=== PATIENT | male | born 1950 ===

== ENCOUNTER 2018-07-14 07:00 | Inpatient (IN) | payer OTHER ==
[~2018-07-14] VITALS: Ht 165.1 cm; Wt 73.0 kg
[2018-07-14] MEDS ORDERED: METFORMIN HCL500 M1 ORAL (10:57)
[2018-07-14] MEDS ORDERED: DONEPEZIL HCL10 MG ORAL (10:57)
[2018-07-14] MEDS ORDERED: GLIPIZIDE10 MG PO (10:57)
[2018-07-14] MEDS ORDERED: PRAVACHOL40 MG ORAL (10:57)
[2018-07-14] MEDS ORDERED: METFORMIN HCL1000 M1 ORAL (10:57)
[2018-07-14] MEDS ORDERED: PLAVIX75 MG ORAL (10:57)
[2018-07-14] MEDS ORDERED: TRAZODONE HCL50 MG ORAL (10:57)
[2018-07-14] MEDS ORDERED: PROTONIX40 MG ORAL (10:57)
[2018-07-14] MEDS ORDERED: POTASSIUM CHLORIDE PO (10:57)
[2018-07-14] MEDS ORDERED: MULTIVITAMINS1 EAC2 ORAL (10:57)
[2018-07-14] MEDS ORDERED: METOPROLOL TART25 MG ORAL (10:57)
[2018-07-14] MEDS ORDERED: NORVASC10 MG ORAL (10:57)
[2018-07-14] MEDS ORDERED: VITAMIN D22000 UNIT PO (10:57)
[2018-07-14] MEDS ORDERED: LOSARTAN POTAS100 MG ORAL (10:57)
[2018-07-15] VITALS (10 sets, daily range): BP systolic 119–146; BP diastolic 60–73
[2018-07-15] MEDS ORDERED: Zemuron 50mg/5ml Inj IV ONE (06:41)
[2018-07-15] MEDS ORDERED: LR 1000ml 1,000 ML IVLG SCH (06:53)
--- NOTE | 2018-07-15 06:56 | Anethesia Preoperative Eval ---
Anesthesia Pre-op PMH/ROS General Date of Evaluation: July 15, 2018 Time of Evaluation: 07:01 Anesthesiologist: Joon ASA Score: ASA 3 Mallampati Score Class I : Soft palate, uvula, fauces, pillars visible Class II: Soft palate, uvula, fauces visible Class III: Soft palate, base of uvula visible Class IV: Only hard plate visible Mallampati Classification: Class II Surgeon: Sherry Diagnosis: Neck Pain Surgical Procedure: ACDF C4-5, C5-6, C6-7 Anesthesia History: none Family History: no anesthesia problems Allergies: Coded Allergies: No Known Allergies (Unverified , 07/13/18) Medications: see eMAR Patient NPO?: Yes NPO Date: Jul 14, 2018 NPO Time: 2358 Past Medical History Cardiovascular: Reports: HTN, other - HL Pulmonary: Reports: HEATHER Gastrointestinal/Genitourinary: Reports: GERD Neurologic/Psychiatric: Reports: depression/anxiety Endocrine: Reports: DM PSxH Narrative: Sleep Apnea SX, Renal Stones Removed Anesthesia Pre-op Phys. Exam Physician Exam Last Vital Signs Date Time Temp Pulse Resp B/P (MAP) Pulse Ox O2 Delivery O2 Flow Rate FiO2 07/15/18 06:26 97.4 66 20 136/65 (88) 97 07/15/18 05:53 Room Air Constitutional: NAD Neurologic: CN 2-12 intact Cardiovascular: RRR Respiratory: CTA Gastrointestinal: S/NT/ND Airway Exam Mallampati Score: Class II MO: full ROM: limited Teeth: missing, intact Dentures: upper, lower Anesthesia Pre-op A/P Risk Assessment & Plan Assessment: ASA 3 Plan: GA, SED, GlideScope Go Status Change Before Surgery: No Pre-Antibiotics Dru Grams Ancef IV Given Within 1 Hr of Incision: Yes Time Given: 07:21 Benjamin Dupree MD July 15, 2018 06:56
[2018-07-15] MEDS ORDERED: Sodium Chloride 10ml vial INJ ONE (06:59)
[2018-07-15] MEDS ORDERED: Lidocaine 1% MPF 10mg/ml 5ml ONE (06:59)
[2018-07-15] MEDS ORDERED: Ketorolac 30mg Inj IV PRN ×2 (07:00)
[2018-07-15] MEDS ORDERED: fentaNYL 100 mcg/2 mL IV PRN (07:00)
[2018-07-15] MEDS ORDERED: DiphenhydrAMINE 50mg/ml Inj IVP PRN (07:00)
[2018-07-15] MEDS ORDERED: HYDROcodone/Acetamin 5/325 tab ORAL PRN ×2 (07:00→07:15)
[2018-07-15] MEDS ORDERED: Atropine Sulfate 0.4mg/ml inj IVP PRN (07:00)
[2018-07-15] MEDS ORDERED: Hydromorphone 0.5mg/0.5ml inj IVP PRN (07:00)
[2018-07-15] MEDS ORDERED: Acetaminophen (Non formulary) 100 ML IV ONE (07:00)
[2018-07-15] MEDS ORDERED: oxyCODONE HCL/Acetaminophen 5/325mg ORAL PRN (07:00)
[2018-07-15] MEDS ORDERED: Midazolam 2mg/2ml Inj IVP PRN (07:00)
[2018-07-15] MEDS ORDERED: LORazepam Inj 2mg/ml 1ml IV PRN (07:00)
[2018-07-15] MEDS ORDERED: Sterile Water Irrig 1000ml IRRIG ONE (07:00)
[2018-07-15] MEDS ORDERED: Labetalol 5mg/ml 20ml vial IV PRN (07:00)
[2018-07-15] MEDS ORDERED: Propofol 1,000mg/ 100ml btl IV ONE (07:00)
[2018-07-15] MEDS ORDERED: NS Irrig 1000ml ONE (07:00)
[2018-07-15] MEDS ORDERED: Metoclopramide 10mg/2ml Inj IVP PRN ×2 (07:00→07:15)
[2018-07-15] MEDS ORDERED: LR 1000ml ONE (07:00)
[2018-07-15] MEDS ORDERED: Meperidine 50mg/ml Inj(FOR RIGORS ONLY) IVP PRN (07:00)
[2018-07-15] MEDS ORDERED: ceFAZolin sod 2 GM in D5W 110 ML IVPB ONE (07:00)
[2018-07-15] MEDS ORDERED: Neostigmine 1mg/ml 10ml Inj ONE (07:00)
[2018-07-15] MEDS ORDERED: HYDROcodone/Acetamin 7.5/325 tab ORAL PRN ×3 (07:00→07:15)
[2018-07-15] MEDS ORDERED: Vancomycin 1gm vial IVPB ONE (07:02)
[2018-07-15] MEDS ORDERED: Gelfoam Size TOPIC ONE (07:02)
[2018-07-15] MEDS ORDERED: Thrombin 5000 units TOPIC ONE ×2 (07:02→07:03)
[2018-07-15] MEDS ORDERED: Bacitracin 50000 Units Vial ONE (07:03)
[2018-07-15] MEDS ORDERED: fentaNYL 100 mcg/2 mL IV ONE (07:06)
[2018-07-15] MEDS ORDERED: Lidocaine 1% Plain 30 ml INJ ONE ×2 (07:11→09:23)
--- NOTE | 2018-07-15 07:13 | Pre-Procedure Note/Attestation ---
Pre-Procedure Note/Attestation Complete Prior to Procedure Planned Procedure: not applicable Procedure Narrative: Anterior cervical discectomy and fusion of Cervical 45,56,67 Indications for Procedure Pre-Operative Diagnosis: Herniation at C45,56,67 Attestation I attest that I discussed the nature of the procedure; its benefits; risks and complications; and alternatives (and the risks and benefits of such alternatives ), prior to the procedure, with the patient (or the patient's legal direct sales representative). I attest that, if there was a reasonable possibility of needing a blood transfusion, the patient (or the patient's legal direct sales representative) was given the [facility] standardized written summary, pursuant to the [place] Blood Safety Act ([place] Health and Safety Code # 1645, as amended). I attest that I re-evaluated the patient just prior to the surgery and that there has been no change in the patient's H&P, except as documented below: Tay Powell MD July 15, 2018 07:13
[2018-07-15] MEDS ORDERED: Morphine Sulfate 4mg/ml Inj (IV USE ONLY) IV PRN ×2 (07:15→12:19)
[2018-07-15] MEDS ORDERED: Chloraseptic Spray 20mL Bottle ORAL PRN (07:15)
[2018-07-15] MEDS ORDERED: HYDROmorphone 1mg/ml Carpuject IVP PRN (07:15)
[2018-07-15] MEDS ORDERED: Naloxone 0.4mg/ml Inj IVP PRN (07:15)
[2018-07-15] MEDS ORDERED: Morphine Sulfate 2mg/ml Inj(IV/IM USE ONLY) IV PRN (07:15)
--- NOTE | 2018-07-15 07:15 | Brief Operative Note ---
Immediate Post Operative Note Operative Note Chief Complaint: Neck pain and radiculopathy Pre-op Diagnosis: Herniation at C45,56,67 Procedure: Anterior cervical discectomy and fusion of Cervical 45,56,67 Post-op Diagnosis: same as pre-op Findings: consistent w/pre-op dx studies Surgeon: Sherry Tooler: Walt Anesthesiologist: Joon Anesthesia: general Specimen: none Complications: none Condition: stable Fluids: IVF Estimated Blood Loss: minimal Drains: none Implant(s) used?: Yes - Nuvasive interlock c sz 6x2 sz 5x1 screws 13mmx9 Tay Powell MD July 15, 2018 07:15
[2018-07-15] MEDS ORDERED: Glycopyrrolate 0.2mg/ml 1ml Vial ONE ×2 (08:38→10:02)
--- NOTE | 2018-07-15 09:16 | General Progress Note ---
Assessment/Plan Assessment/Plan: Neck pain and radiculopathy Herniation at C45,56,67 Anterior cervical discectomy and fusion of Cervical 45,56,67 PLAN 1. incentive spirometry 2. SCD 3. PT evaluation and therapy 4. Hydration 5. Pain management 6. discharge once stable with outpatient follow up Subjective Allergies: Coded Allergies: No Known Allergies (Unverified , 07/13/18) Subjective asked to follow up medically Objective Last 24 Hour Vital Signs Date Time Temp Pulse Resp B/P (MAP) Pulse Ox O2 Delivery O2 Flow Rate FiO2 07/15/18 06:26 97.4 66 20 136/65 (88) 97 07/15/18 05:53 Room Air Height (Feet): 5 Height (Inches): 5.00 Weight (Pounds): 161 Igor Nunez MD July 15, 2018 09:16
--- NOTE | 2018-07-15 09:34 | Immediate Post-Op Evaluation ---
Immediate Post-Op Evalulation Immediate Post-Op Evalulation Procedure: ACDF C4-5, C5-6, C6-7 Date of Evaluation: July 15, 2018 Time of Evaluation: 10:55 IV Fluids: 1000 LR Blood Products: 0 Estimated Blood Loss: 75 Urinary Output: 350 Blood Pressure Systolic: 126 Blood Pressure Diastolic: 68 Pulse Rate: 71 Respiratory Rate: 16 O2 Sat by Pulse Oximetry: 98 Temperature (Fahrenheit): 97.3 Pain Score (1-10): 2 Nausea: No Vomiting: No Complications 0 Patient Status: awake, reacts, patent, extubated, none Hydration Status: adequate Dru Grams Ancef IV Given Within 1 Hr of Incision: Yes Time Given: 07:21 Benjamin Dupree MD July 15, 2018 09:34
--- NOTE | 2018-07-15 11:28 | Diagnostic Imaging Report ---
INDICATION: Pain, intraoperative TECHNIQUE: Intraoperative imaging Fluoroscopy time: 6.5 seconds Total dose: 0.61561 mGym2 Total number of images: 4 COMPARISON: None FINDINGS: Intraoperative images demonstrate surgical tool's projected over C4 and C5. Subsequent images demonstrate surgical tool projected anterior to C4-5 and C5-6 discs. Subsequent images demonstrate placement of anterior fusion hardware at C4-5, C5-6, C6-7 IMPRESSION: Intraoperative images, as described
[2018-07-15] MEDS ORDERED: Milk of Magnesia 30ml Ud ORAL PRN (12:18)
[2018-07-15] MEDS: Artificial Tears 1.4% Op Soln BOTH EYES PRN ×2 (13:53→17:53)
--- NOTE | 2018-07-15 14:14 | 48 Hour Post Anesthesia Eval ---
Post Anesthesia Evaluation Procedure: ACDF C4-5, C5-6, C6-7 Date of Evaluation: July 15, 2018 Time of Evaluation: 14:10 Blood Pressure Systolic: 120 0: 61 Pulse Rate: 73 Respiratory Rate: 18 Temperature (Fahrenheit): 97.4 O2 Sat by Pulse Oximetry: 96 Airway: patent Nausea: No Vomiting: No Pain Intensity: 3 - Complains of eye pain. It appears like he touched the eye while drowsy. Hydration Status: adequate Mental Status/LOC: patient returned to baseline Follow-up Care/Observations: Will patch the eye overnight. Coupled with the eye drops pain should subside. Post-Anesthesia Complications: Eye Pain C/O. Follow-up care needed: N/A Benjamin Dupree MD July 15, 2018 14:14
[2018-07-15] MEDS ORDERED: LOSARTAN POTAS100 MG ORAL (14:48)
[2018-07-15] MEDS: NS w/KCl 20mEq 1,000 ML IV SCH (15:29)
[2018-07-15] MEDS: ceFAZolin sod 1 GM in D5W 55 ML IV SCH (15:29)
[2018-07-15] MEDS: Losartan 50mg tab ORAL SCH (17:53)
[2018-07-15] MEDS: Docusate 100mg cap ORAL SCH (17:53)
[2018-07-15] MEDS: Dexamethasone 4mg/ml vial IVP SCH (17:53)
[2018-07-15] MEDS: NovoLOG Insulin Flexpen SUBQ SCH ×2 (17:55→20:48)
[2018-07-15] MEDS: Metoprolol 25mg tab ORAL SCH (20:42)
[2018-07-15] MEDS ORDERED: TraZODone 50mg tab ORAL SCH (21:00)
--- NOTE | 2018-07-15 22:30 | Operative Note - Dictated ---
DATE OF OPERATION: 07/15/2018 SURGEON: Tay Powell M.D., Orthopaedic Spine Surgeon. AUTOMATIC BEAM WARPER TENDER: CRUZ Lopez. ANESTHESIOLOGIST: Benjamin Dupree M.D. PREOPERATIVE DIAGNOSES: 1. Intractable neck pain. 2. Radiculopathy. 3. Herniation, C4-C5, C5-C6, C6-C7. 4. Neural foraminal stenosis, C4-C5, C5-C6, C6-C7. 5. Stenosis. POSTOPERATIVE DIAGNOSES: 1. Intractable neck pain. 2. Radiculopathy. 3. Herniation, C4-C5, C5-C6, C6-C7. 4. Neural foraminal stenosis, C4-C5, C5-C6, C6-C7. 5. Stenosis. PROCEDURE PERFORMED: 1. Anterior cervical discectomy and fusion of C4-C5 using NuVasive Interlock Cage, size 5, a total of three screws of 13 mm diameter, with the insertion of allograft Osteocel bone; anterior cervical discectomy and fusion of C5-C6 using NuVasive Interlock Cage, size 5, a total of three screws of 13 mm, with the insertion of allograft Osteocel bone; anterior cervical discectomy and fusion of C6-C7 using NuVasive Interlock Cage, size 6, a total of three screws of 13 mm, with the insertion of allograft Osteocel bone. 2. Use of intraoperative microscope. 3. Motor-evoked potential monitoring. 4. Somatosensory-evoked potential monitoring. 5. Supervision and interpretation of fluoroscopy. COMPLICATIONS: None. ANESTHESIA: General. ESTIMATED BLOOD LOSS: Less than 50 mL. INDICATIONS FOR SURGERY: This patient is a 68-year-old male who has history of intractable neck pain; radiculopathy; herniation of C4-C5, C5-C6, C6-C7; neural foraminal stenosis of C4-C5, C5-C6, C6-C7; stenosis. We tried a course of conservative management, but despite this course, there was still a significant component of persistent, recalcitrant neck pain and arm pain. The MRI demonstrated significant neural foraminal compromise secondary to disc herniations at C4-C5, C5-C6, C6-C7. We had a long discussion with Ferny regarding the risks and benefits of surgery. Our discussion included, but was not limited to nonoperative management, chiropractic management, another epidural steroid injection as well as definitive management in the form of surgery. We recommended an anterior cervical discectomy and fusion of C4-C5, C5-C6, C6-C7 as final definitive management. We reviewed the risks and benefits of surgery with the patient. Our discussion included a comprehensive review of the clinical issues and the nature of the clinical decision. We reviewed the alternatives, including doing nothing. The patient elected to proceed accordingly with anterior cervical discectomy and fusion of C4-C5, C5-C6, C6-C7. We had a long discussion regarding the risks, alternatives, and benefits of surgery. Our description of the risks included a discussion in person as well as a signed consent which detailed all pertinent risks from the procedure itself. Briefly, our discussion included but was not limited to infection, bleeding, pseudarthrosis, spinal cord injury, neurovascular injury, dural tear, CSF leak, neuropathy, paralysis, permanent weakness/drop foot/drop arm, paresthesias, blindness, palsy, and weakness. The patient understood there may be a need for a revision surgery or additional procedures. Approach-related complications including dysphonia, dysphagia, blindness, permanent vocal cord and neural injury, hematoma, swallowing and breathing difficulty. Medical complications were reviewed including liver, kidney, shock, cardiopulmonary failure, anesthesia complications including , swelling, damage to the musculature, larynx/voice injury or loss, esophagus/throat, trachea, blood vessels and muscles/muscular sprain and lungs/pneumothorax during this surgical procedure; injury to deeper structures may be temporary or permanent. After this review of risks, the patient understood these and elected to proceed. A written and verbal consent was given. We discussed the pros and cons of all the alternatives. We discussed the uncertainties associated with the decision. Afterwards I assessed the patient's understanding and explored their preferences. All questions were answered and no guarantees were given. Medical clearance was obtained prior to surgery. INTRAOPERATIVE FINDINGS: At C4-C5, there was slight decrease in disc space. A large herniation was encountered at C4-C5. A tear in the posterior longitudinal ligament was noticed on the right side with a tear approximately 20 degrees measuring cephalad to caudad. With a tear in the PLL, a soft disc herniation was noted, which was encroaching on the neural elements of the C4-C5 interspace and the spinal cord. At C5-C6, I noticed loss in the disc height with a tear on the right side into the neural foramina measuring approximately 40 degrees cephalad to caudad. Through this tear, a soft piece of disc herniation was encountered, which was encroaching on the thecal sac and the neural foramina there. At C6-C7, there was decrease in disc height, not as decreased at C5-C6, but pronounced. Along the margins of the posterior longitudinal ligament, I found 2 tears, one centrally and one on the right side. The tear centrally was vertical. The tear on the right-hand side was cephalad to caudad approximately 40 degrees. Through this tear, once mobilized with a Microsect 1-B, there was a soft disc herniation with encroachment on the thecal sac, spinal cord, and neural foramina at C6-C7. DESCRIPTION OF PROCEDURE: Under the benefit of general endotracheal anesthesia and with the assistance of the entire operative team, the patient was moved from the rney onto the operative table in the supine position. The head was secured and carefully positioned appropriately. Bilateral arms were secured with Gel Pads and foam and all bony prominences were padded. For the bilateral lower extremities, SCD and SHARLA hose were placed for DVT prophylaxis. A surgical timeout was called which corroborated our planned procedure of anterior cervical discectomy and fusion of C4-C5, C5-C6, C6-C7. Preoperative antibiotics were administered within 30 minutes of the incision for antibiotic prophylaxis. Using lateral fluoroscopic radiography, the operative levels were delineated. Next, the wound was prepped and draped with chlorhexidine and sterile drapes. An incision was based on lateral fluoroscopy and we centered our incision at the C4-C5, C5-C6, C6-C7 interspace and next using a standard Hernandez-Vazquez anterior-based approach, the incision was taken down through the skin and subcutaneous tissues until the vertebral bodies and their corresponding disc spaces were visualized. A needle was placed into the interspace to confirm placement of the operative interspace and we performed the remainder of procedure under microscopic visualization. Next, using a bipolar and Bovie cautery to ensure meticulous hemostasis, the longus colli was mobilized bilaterally and retractors were placed deep to the longus colli bilaterally to address retraction. Next, we turned our attention to the radical anterior discectomy. This was initially performed at C4-C5 first by using a 15 blade scalpel followed by narrow pituitaries and a Microsect 5-B curette was used to denude the endplate of all cartilaginous tissue. Next, using a Midas Que AM8 drill bit, the partial vertebrectomy was performed in a vgrm-sr-efpc and nwwaa-nz-lubag fashion, and ultimately the posterior uncinate joints bilaterally and posterior osteophytic lips and margins causing central and lateral impingement were carefully denuded until visualization of the posterior longitudinal ligament was possible. An endplate preparation was performed in the exact same fashion using an intervertebral university professor, sequential distraction was obtained throughout the disc space. We saw a tear/rent in the PLL and this was carefully mobilized and dissected using a Microsect 1-B curette until we visualized a broad-based disc herniation with compression of the spinal cord as well as neural foramina which was right-sided. This neural foraminal compression was carefully resected using a Kerrison-1 and Kerrison-2 rongeurs until complete decompression of the spinal cord was visualized and complete decompression of the neural foramina and nerve root therein as well as the axilla and lateral margin of the nerve root was visualized and subsequently completely decompressed. The family was notified at one-hour intervals throughout the procedure to provide for consistent updates. Next we turned our attention to the radical anterior discectomy at the C5-C6 level first by using a 15 blade scalpel followed by narrow pituitaries and a Microsect 5-B curette was used to denude the endplate of all cartilaginous tissue. Next, using a Midas Que AM8 drill bit, the partial vertebrectomy was performed in a qgjc-jb-chcw and dqomc-be-nlqyu fashion, and ultimately the posterior uncinate joints bilaterally and posterior osteophytic lips and margins causing central and lateral impingement were carefully denuded until visualization of the posterior longitudinal ligament was possible. An endplate preparation was performed in the exact same fashion using an intervertebral university professor, sequential distraction was obtained throughout the disc space. We saw a tear/rent in the PLL and this was carefully mobilized and dissected using a Microsect 1-B curette until we visualized a broad-based disc herniation with compression of the spinal cord as well neural foramina which was right-sided. This neural foraminal compression was carefully resected using a Kerrison-1 and Kerrison-2 rongeurs until complete decompression of the spinal cord was visualized and complete decompression of the neural foramina and nerve root therein as well as the axilla and lateral margin of the nerve root was visualized and subsequently completely decompressed. Next we turned our attention to the radical anterior discectomy at the C6-C7 level first by using a 15 blade scalpel followed by narrow pituitaries and a Microsect 5-B curette was used to denude the endplate of all cartilaginous tissue. Next, using a EcoVadis AM8 drill bit, the partial vertebrectomy was performed in a gofb-ku-ghbe and jlnmv-jp-hocgi fashion, and ultimately the posterior uncinate joints bilaterally and posterior osteophytic lips and margins causing central and lateral impingement were carefully denuded until visualization of the posterior longitudinal ligament was possible. An endplate preparation was performed in the exact same fashion using an intervertebral university professor, sequential distraction was obtained throughout the disc space. We saw a tear/rent in the PLL and this was carefully mobilized and dissected using a Microsect 1-B curette until we visualized a broad-based disc herniation with compression of the spinal cord as well neural foramina which was right-sided. This neural foraminal compression was carefully resected using a Kerrison-1 and Kerrison-2 rongeurs until complete decompression of the spinal cord was visualized and complete decompression of the neural foramina and nerve root therein as well as the axilla and lateral margin of the nerve root was visualized and subsequently completely decompressed. We next turned our attention towards trialing our implant within the disc space. We initially tried size 5 at C4-C5 and C5-C6, and size 6 trial at C6-C7 from the NuVasive system at each level, which appeared to be appropriate under AP and lateral fluoroscopy as well as in terms of its height, depth, width, and lack of toggle. The PEEK (polyetheretherketone) interbody cages were then both packed with allograft bone from Osteocel and local autograft bone matrix. Next, these were then carefully advanced and secured into their intervertebral spaces under direct visualization and with supervision of AP and lateral fluoroscopic views. We next turned our attention towards plating. At C4-C5, plating was performed with Clicker Interlock-C plating system. A total of three screws, size 13 mm in length were inserted and confirmed under AP and lateral fluoroscopy and confirmed to be in excellent position. At C5-C6, plating was performed with Porter + SailVasive Interlock-C plating system. A total of three screws, size 13 mm in length were inserted and confirmed under AP and lateral fluoroscopy and confirmed to be in excellent position. At C6-C7, plating was performed with NuSuper Clean Jobsite Interlock-C plating system. A total of three screws, size 13 mm in length were inserted and confirmed under AP and lateral fluoroscopy and confirmed to be in excellent position. After a finger sweep, we confirmed removal of all sponges. The retractor was removed and we next turned our attention to meticulous hemostasis with FloSeal and bipolar cautery. After the sponge and needle count was again found to be correct with our second count, we next turned our attention to closure. The wound was again copiously irrigated with antibiotic-impregnated saline. Closure consisted of 4-0 clear nylon for the platysma, and 6-0 clear nylon for the superficial skin. Final skin closure and dressings consisted of Dermabond. Prior to final closure, a final radiograph was obtained which demonstrated the hardware was intact with excellent position throughout. The patient tolerated the procedure well. The patient was carefully extubated after the conclusion of surgery. We discussed the findings of the surgery with the family upon completion of the case. At this point, the patient was transferred to the spine floor for further observation. Tay Powell M.D. DR: Susie JOB#: [id number] CC:
[2018-07-16] VITALS: BP 135/65
[2018-07-16] MEDS: NS w/KCl 20mEq 1,000 ML IV SCH
[2018-07-16 04:00] VITALS: BP 120/60
[2018-07-16] MEDS: Dexamethasone 4mg/ml vial IVP SCH ×2 (06:19)
[2018-07-16] MEDS: NovoLOG Insulin Flexpen SUBQ SCH (06:24)
[2018-07-16] MEDS: Artificial Tears 1.4% Op Soln BOTH EYES PRN (06:26)
[2018-07-16] MEDS: ceFAZolin sod 1 GM in D5W 55 ML IV SCH ×3 (06:26)
[2018-07-16] MEDS ORDERED: GlipiZIDE 5mg tab ORAL SCH (06:30)
[2018-07-16 08:00] VITALS: BP 126/63
--- NOTE | 2018-07-16 08:33 | General Progress Note ---
Assessment/Plan Assessment/Plan: Neck pain and radiculopathy Herniation at C45,56,67 Anterior cervical discectomy and fusion of Cervical 45,56,67 PLAN 1. incentive spirometry 2. SCD 3. PT evaluation and therapy 4. Hydration 5. Pain management 6. discharge planning Subjective Allergies: Coded Allergies: No Known Allergies (Unverified , 07/13/18) Subjective care noted Objective Last 24 Hour Vital Signs Date Time Temp Pulse Resp B/P (MAP) Pulse Ox O2 Delivery O2 Flow Rate FiO2 07/16/18 04:00 98.3 71 18 120/60 (80) 92 07/16/18 00:00 98.2 73 18 135/65 (88) 95 07/15/18 20:42 78 146/73 07/15/18 20:00 98.8 78 18 146/73 (97) 98 07/15/18 17:53 145/74 07/15/18 15:56 97.4 07/15/18 14:14 73 18 96 07/15/18 11:45 97.4 07/15/18 11:35 97.4 73 16 120/61 96 Nasal Cannula 3 07/15/18 11:30 67 14 119/60 96 Nasal Cannula 3 07/15/18 11:20 67 13 126/64 97 Nasal Cannula 3 07/15/18 11:10 67 13 134/71 100 Nasal Cannula 3 07/15/18 11:00 69 14 127/65 100 Simple Mask 6 07/15/18 10:50 67 16 133/71 98 Simple Mask 6 07/15/18 10:46 69 16 131/69 98 Simple Mask 6 07/15/18 10:41 71 16 98 07/15/18 10:40 97.3 71 12 126/68 98 Simple Mask 6 Intake and Output 07/15/18 07/16/18 19:00 07:00 Intake Total 1450 ml 1005 ml Output Total 370 ml 650 ml Balance 1080 ml 355 ml Intake IV Total 1450 ml 1005 ml Output Urine Total 350 ml 650 ml Estimated Blood Loss 20 ml Height (Feet): 5 Height (Inches): 5.00 Weight (Pounds): 161 Igor Nnuez MD July 16, 2018 08:33
[2018-07-16] MEDS: Docusate 100mg cap ORAL SCH (08:53)
[2018-07-16 08:54] VITALS: BP 126/63
[2018-07-16] MEDS: Metoprolol 25mg tab ORAL SCH (08:54)
[2018-07-16] MEDS: Losartan 50mg tab ORAL SCH (08:54)
[2018-07-16] MEDS ORDERED: metFORMIN 500mg tab ORAL SCH ×2 (09:00→21:00)
[2018-07-16] MEDS ORDERED: Donepezil 10mg tab ORAL SCH (09:00)
--- NOTE | 2018-07-17 10:25 | Discharge Summary ---
Discharge Summary Discharge Summary _ DATE OF ADMISSION: 07/15/2018 DATE OF DISCHARGE: 07/16/2018 DISCHARGED BY: Dr. Clem Nunez SURGEON: Dr. Tay Powell BRIEF HOSPITAL COURSE: Patient is a 68-year-old male, who has intractable neck pain with radiculopathy , diagnosed with cervical disc herniation at C4-C5, C5-C6 and C6-C7 with neural foraminal stenosis on C4-C5, C5-C6 and C6-C7. He failed conservative management he continued to have significant component of persistent, recalcitrant neck pain and arm pain. MRI demonstrated significant neural foraminal compromise secondary to disc herniations at C4-C5, C5-C6 and C6-C7. He was admitted on 07/15/2018 and underwent cervical discectomy and fusion of C4 -C5, C5-C6, C6-C7. He tolerated procedure well. Surgery was uneventful. Post- operatively, patient was admitted for post-op care. He was placed on SCDs for DVT prophylaxis and was encouraged use of incentive spirometer. Patient was given pain management. He was seen by PT. Diet was advanced. Incision was clean, dry and intact. Patient was ambulating well with good pain control and was tolerating diet. Patient was eventually cleared for discharge home. POSTOPERATIVE DIAGNOSES: 1. Intractable neck pain. 2. Radiculopathy. 3. Herniation, C4-C5, C5-C6, C6-C7. 4. Neural foraminal stenosis, C4-C5, C5-C6, C6-C7. 5. Stenosis. PROCEDURE PERFORMED: 1. Anterior cervical discectomy and fusion of C4-C5 using NuVasive Interlock Cage, size 5, a total of three screws of 13 mm diameter, with the insertion of allograft Osteocel bone; anterior cervical discectomy and fusion of C5-C6 using NuVasive Interlock Cage, size 5, a total of three screws of 13 mm, with the insertion of allograft Osteocel bone; anterior cervical discectomy and fusion of C6-C7 using NuVasive Interlock Cage, size 6, a total of three screws of 13 mm, with the insertion of allograft Osteocel bone. 2. Use of intraoperative microscope. 3. Motor-evoked potential monitoring. 4. Somatosensory-evoked potential monitoring. 5. Supervision and interpretation of fluoroscopy. (Refer to Operative Report) DISCHARGE DISPOSITION: Patient was discharged home. DISCHARGE MEDICATIONS: Refer to Medication Reconciliation Sheet. DISCHARGE INSTRUCTIONS: Post-op instructions given. Follow-up in a week. I have been assigned to complete a DC summary on this account, I was not involved with the patient's management. Nevaeh Ann NP July 17, 2018 10:25
== END 2018-07-16 11:40 | disposition home or self-care (01) | DRG 473 ==
LOC: SDSOVERFLO 07-15 05:12 → 3E 07-15 12:11
PROC: 0RB30ZZ Excision of Cervical Vertebral Disc, Open Approach (ICD-10-PCS; 2018-07-15)
PROC: 01N10ZZ Release Cervical Nerve, Open Approach (ICD-10-PCS; 2018-07-15)
PROC: 0RG20A0 Fusion of 2 or more Cervical Vertebral Joints with Interbody Fusion Device, Anterior Approach, Anterior Column, Open Approach (ICD-10-PCS; principal; 2018-07-15 07:00)
DX: M50.121 Cervical disc disorder at C4-C5 level with radiculopathy (principal); M48.02 Spinal stenosis, cervical region; I10 Essential (primary) hypertension; E11.9 Type 2 diabetes mellitus without complications; G47.00 Insomnia, unspecified; Z86.73 Personal history of transient ischemic attack (TIA), and cerebral infarction without residual deficits; V89.2XXS Person injured in unspecified motor-vehicle accident, traffic, sequela; M25.511 Pain in right shoulder; Z79.84 Long term (current) use of oral hypoglycemic drugs; Z79.02 Long term (current) use of antithrombotics/antiplatelets
CPT/HCPCS: 36415; 72040; 76000; 82962; 86850; 86900; 86901; 87081; 94003; 94150; J1815; J2405; J2710; J2765